=== PATIENT | female | born 1995 | race Caucasian/White ===

== ENCOUNTER 2018-07-07 23:01 | Emergency (ER) | payer OTHER ==
[~2018-07-07] VITALS: Ht 160 cm; Wt 59.1 kg
[2018-07-07 23:37] LABS: URINE PREG TEST NEGATIVE (NEGATIVE)
[2018-07-07 23:44] LABS: APPEARANCE, URINE CLEAR (CLEAR); BACTERIA, URINE AUTO 1+ (NEGATIVE); BILIRUBIN, URINE AUTO NEGATIVE (NEGATIVE); BLOOD, URINE BLOOD 3+ (NEGATIVE); COLOR, URINE STRAW (YELLOW); GLUCOSE, URINE (UA) AUTO NEGATIVE (NEGATIVE); KETONE, URINE AUTO NEGATIVE (NEGATIVE); LEUKOCYTE ESTERASE, URINE AUTO 3+ (NEGATIVE); NITRITE, URINE AUTO NEGATIVE (NEGATIVE); PROTEIN, URINE AUTO NEGATIVE (NEGATIVE); RBC, URINE AUTO 0 /HPF (0-3); SQUAMOUS EPITHELIAL CELL UR AU 0 /HPF (0-6); UROBILINOGEN, URINE AUTO 0.2 mg/dL (0.0-2.0); WBC, URINE AUTO 19 /HPF (0-3)
[2018-07-07] MEDS ORDERED: MACR100C43 PO (23:55)
[2018-07-07] MEDS ORDERED: PYRI1TAB5 PO (23:55)
[2018-07-08] MEDS ORDERED: NITROFURANTOIN (MACROBID) 100 MG CAP PO ONE
[2018-07-08] MEDS ORDERED: PHENAZOPYRIDINE 100 MG TAB PO ONE
[2018-07-08 00:02] VITALS: BP 138/78
== END 2018-07-08 00:03 | disposition home or self-care (01) ==
LOC: M ED 23:01
DX: N30.00 Acute cystitis without hematuria (principal)